=== PATIENT | female | born 1950 | race Caucasian/White ===

== ENCOUNTER → 2023-07-09 13:35 | Outpatient (CLI) | payer OTHER, SELFPAY ==
--- NOTE | 2023-07-15 20:44 | DI.NM.S_ITS ---
DATE OF SERVICE: 07/09/2023 NUCLEAR CARDIOLOGY MYOCARDIAL PERFUSION STUDY PROCEDURE: Pharmacologic vasodilator stress and rest myocardial perfusion imaging with gating to assess ejection fraction and regional wall motion. ORDERING PROVIDER: CARLYLE Lantigua. INDICATIONS: The patient is a 72-year-old morbidly obese female with exertional dyspnea and diabetes. CARDIAC STRESS: Per protocol, 0.4 mg of regadenoson was infused with a normal hemodynamic response. With this, the patient had mild dyspnea with slight chest fullness. Her resting ECG is normal with normal ST segments. There are no significant ST-segment shifts or arrhythmias with stress. Per protocol, 25.7 mCi of technetium-99m Myoview was injected and she was imaged 15 minutes later using a quantitative gated SPECT acquisition protocol. Six days earlier while at rest, she had been injected with 26.1 mCi of technetium-99m Myoview and imaged 15 minutes later, again using a gated SPECT acquisition protocol. FINDINGS: 1. Raw data: There is a fairly poor myocardial tracer imaging with prominent breast shadows that clearly produces significant attenuation. The lung/heart ratio is normal at 0.23 with a normal TID ratio of 0.86. 2. Quantitative gated SPECT: Post-stress ejection fraction is estimated at 77% without any obvious focal wall motion abnormality, and specifically, the inferior wall appears to have normal contractility. The resting ejection fraction is estimated at 71% with a mildly increased resting end-diastolic volume of 162 mL. 3. Myocardial perfusion imaging: Post-stress supine images show a mild perfusion defect in the inferior wall in a pattern that would be consistent with diaphragmatic attenuation artifact. Unfortunately, the patient was unable to lie prone to assess for this. There are no other obvious perfusion defects. The resting images show an identical perfusion pattern without any areas of improvement. IMPRESSION: 1. Probable normal myocardial perfusion study. 2. Mild fixed inferior wall perfusion defect that likely reflects diaphragmatic attenuation artifact given the absence of any wall motion abnormality but a previous small infarction cannot be entirely excluded. There is no reversibility to suggest any myocardial ischemia. 3. Mild left ventricular enlargement with normal systolic function and no focal wall motion abnormality. 4. Nonspecific chest discomfort and dyspnea with pharmacologic vasodilator stress but no ECG evidence of ischemia. 5. There are no previous study images for comparison with but a previous report from [facility] from 07/18/2016 suggested an ejection fraction of 71% with an end-diastolic volume of 106 mL and no perfusion defects suggesting probable interval increase in left ventricular volumes but otherwise no significant change. ChintanYana montalvo - NADEEN/suzie/SERENA doc#: [id number]/job#: [id number] dd: 07/15/2023 16:30:00 dt: 07/15/2023 19:34:00 DICTATING MD/COPIES TO: Matthew De León MD; CARLYLE Lantigua COPIES MNE: SHYLA; ; CARLYLE Lantigua
== END ==
PROVIDERS: Family Provider Family Medicine; PCP Family Medicine; Referring Provider Nurse Practitioner Family; Visit Provider Nurse Practitioner Family
DX: R06.09 Other forms of dyspnea (principal); E11.39 Type 2 diabetes mellitus with other diabetic ophthalmic complication; I51.9 Heart disease, unspecified; R01.1 Cardiac murmur, unspecified; E66.01 Morbid (severe) obesity due to excess calories; I10 Essential (primary) hypertension
CPT/HCPCS: 78452; 93017; A9502; J2785